=== PATIENT | female | born 1975 | race Caucasian/White ===

== ENCOUNTER → 2020-09-22 | Outpatient (CLI) | payer OTHER | LOC: KOH-I 14:03 | DX: S82.891D Other fracture of right lower leg, subsequent encounter for closed fracture with routine healing (principal); M89.8X7 Other specified disorders of bone, ankle and foot; X58.XXXD Exposure to other specified factors, subsequent encounter | CPT/HCPCS: 73610 ==

== ENCOUNTER → 2020-10-03 | Outpatient (CLI) | payer OTHER | LOC: KOH-I 10:15 | DX: S82.301A Unspecified fracture of lower end of right tibia, initial encounter for closed fracture (principal); M89.8X7 Other specified disorders of bone, ankle and foot; X50.1XXA Overexertion from prolonged static or awkward postures, initial encounter | CPT/HCPCS: 73721 ==